=== PATIENT | male | born 1985 | race Caucasian/White ===

== ENCOUNTER 2022-03-25 00:20 | Observation (INO) | payer MEDICAID ==
[2022-03-25] MEDS ORDERED: Ondansetron 4 MG/2 ML SDV IVPUSH ONE (00:47)
[2022-03-25] MEDS: Sodium Chloride 0.9% 10 ML Syringe FLUSH SCH ×6 (00:51→21:32)
[2022-03-25] MEDS ORDERED: MVI, Adult with Vitamin K 10 ML, Folic Acid 1 MG, Thiamine 100 MG in Lactated Ringers 1... IV ONE ×4 (00:58)
[2022-03-25 01:07] LABS: ANION GAP 15.3 mEq/L (7-13)
[2022-03-25] MEDS ORDERED: Metoclopramide 10 MG/2 ML SDV IVPUSH ONE (01:16)
[2022-03-25] MEDS ORDERED: Sodium Chloride 0.9% 1,000 ML IV ONE (01:49)
[2022-03-25 02:04] LABS: CORONAVIRUS COVID-19 NAA NEGATIVE (NEGATIVE)
[2022-03-25 03:28] LABS: AMPHETAMINES,URINE NEGATIVE (NEGATIVE); BARBITURATES,URINE NEGATIVE (NEGATIVE); BENZODIAZEPINE,URINE POSITIVE (NEGATIVE); MDMA (ECSTASY), URINE NEGATIVE (NEGATIVE); METHADONE,URINE NEGATIVE (NEGATIVE); METHAMPHETAMINES,URINE NEGATIVE (NEGATIVE); OPIATES,URINE NEGATIVE (NEGATIVE); OXYCODONE,URINE NEGATIVE (NEGATIVE); PHENCYCLIDINE,URINE NEGATIVE (NEGATIVE); TCA,URINE NEGATIVE (NEGATIVE)
[2022-03-25] MEDS ORDERED: Sodium Chloride 0.9% 10 ML Syringe FLUSH PRN (06:17)
[2022-03-25] MEDS ORDERED: Docusate Sodium 100 MG Cap PO PRN (06:17)
[2022-03-25] MEDS ORDERED: Ondansetron 4 MG Tab.DIS PO PRN (06:17)
[2022-03-25] MEDS: Dextrose 5%-0.45% NaCl 1,000 ML IV SCH ×3 (07:44→23:42)
[2022-03-25] MEDS: Multivitamin Tab PO SCH (08:47)
[2022-03-25] MEDS: Thiamine 100 MG Tab PO SCH (08:47)
[2022-03-25] MEDS: Folic Acid 1 MG Tab PO SCH (08:48)
[2022-03-25] MEDS: Ondansetron 4 MG/2 ML SDV IVPUSH PRN ×2 (08:48→16:14)
[2022-03-25] MEDS: QUEtiapine 25 MG Tab PO SCH (08:48)
[2022-03-25] MEDS: LORazepam 2 MG/ML SDV IV PRN ×4 (08:49→23:40)
[2022-03-25] MEDS ORDERED: Non-Formulary Medication 1 Each (Omeprazole [Omeprazole] 40 MG Capsule.Dr) PO SCH (09:00)
[2022-03-25] MEDS ORDERED: Albuterol 6.7 GM Inhaler INH ONE (09:39)
[2022-03-25] MEDS ORDERED: Albuterol 6.7 GM Inhaler INH PRN (12:00)
[2022-03-26] MEDS: LORazepam 2 MG/ML SDV IV PRN (02:50)
[2022-03-26] MEDS: Pantoprazole 40 MG Tab.CR PO SCH (05:09)
[2022-03-26] MEDS: Dextrose 5%-0.45% NaCl 1,000 ML IV SCH ×2 (07:53→16:42)
[2022-03-26] MEDS: QUEtiapine 25 MG Tab PO SCH ×2 (08:32→21:50)
[2022-03-26] MEDS: Sodium Chloride 0.9% 10 ML Syringe FLUSH SCH ×2 (08:32→20:07)
[2022-03-26] MEDS: Thiamine 100 MG Tab PO SCH (08:32)
[2022-03-26] MEDS: Multivitamin Tab PO SCH (08:32)
[2022-03-26] MEDS: Folic Acid 1 MG Tab PO SCH (08:32)
[2022-03-26] MEDS: LORazepam 0.5 MG Tab PO PRN ×3 (11:55→21:50)
[2022-03-26] MEDS ORDERED: Potassium Chloride 10 MEQ Tab.ER PO ONE (17:00)
[2022-03-26] MEDS: Nicotine 21 MG/24 Hr Patch TRDERM SCH (17:24)
[2022-03-26] MEDS ORDERED: cloNIDine 0.1 MG Tab PO ONE (19:48)
[2022-03-26] MEDS ORDERED: cloNIDine 0.1 MG Tab PO PRN (22:00)
[2022-03-26] MEDS ORDERED: hydrALAZINE 20 MG/ML SDV IVPUSH PRN (23:26)
[2022-03-27] MEDS: Dextrose 5%-0.45% NaCl 1,000 ML IV SCH (00:41)
[2022-03-27] MEDS: LORazepam 0.5 MG Tab PO PRN (01:54)
[2022-03-27] MEDS: Pantoprazole 40 MG Tab.CR PO SCH (06:31)
[2022-03-27 06:57] LABS: ANION GAP 13.5 mEq/L (7-13); CHLORIDE,CL 106 mmol/L (98-107); SODIUM,NA 142 mmol/L (136-145)
[2022-03-27 06:58] LABS: ESTIMATED GFR 128 mL/min (>=60)
[2022-03-27] MEDS ORDERED: Magnesium Sulfate/Water 2 GM in Premix Bag 1 BAG IV ONE (07:01)
[2022-03-27] MEDS: Nicotine 21 MG/24 Hr Patch TRDERM SCH (08:09)
[2022-03-27] MEDS: Multivitamin Tab PO SCH (08:10)
[2022-03-27] MEDS: Folic Acid 1 MG Tab PO SCH (08:10)
[2022-03-27] MEDS: QUEtiapine 25 MG Tab PO SCH (08:10)
[2022-03-27] MEDS: Thiamine 100 MG Tab PO SCH (08:10)
[2022-03-27] MEDS: Sodium Chloride 0.9% 10 ML Syringe FLUSH SCH (08:12)
[2022-03-27 09:20] VITALS: BP 129/95; PULSE 95
== END 2022-03-27 10:12 | disposition left against medical advice (07) ==
LOC: DL.ED 00:20 → UNDOADMOB 04:10 → DL.MS 04:10 → DL.ED 04:16
PROVIDERS: ADMIT Hospitalist; ATTEND Internal Medicine
DX: F10.229 Alcohol dependence with intoxication, unspecified (principal); G47.00 Insomnia, unspecified; I10 Essential (primary) hypertension; J45.909 Unspecified asthma, uncomplicated; R56.9 Unspecified convulsions; F17.210 Nicotine dependence, cigarettes, uncomplicated; F41.9 Anxiety disorder, unspecified; Z79.899 Other long term (current) drug therapy; Z20.822 Contact with and (suspected) exposure to COVID-19
CPT/HCPCS: 0240U; 36415; 80053; 80143; 80179; 80305; 80307; 81001; 83735; 85025; 96361; 96365; 96366; 96367; 96375; 96376; 99222; 99232; 99238; 99285; A9270; G0378; J0360; J2060; J2405; J2765; J3411; J3475; J3490; J7030; J7042; J7120